=== PATIENT | female | born 1950 | race Caucasian/White ===

== ENCOUNTER 2024-12-04 06:03 | Day surgery (SDC) | payer MEDICARE, BC, SELFPAY ==
[2024-11-27 15:04] VITALS: BMI 30.2
--- NOTE | 2024-11-30 10:06 | EXP.HP ---
History of Present Illness *Admission Date: 12/04/24 *Reason for visit:: Personal history of adenomatous colon polyps *History of present illness: Mrs. Mckay is a 74-year-old female who is here for follow-up screening/surveillance colonoscopy secondary to a personal history of adenomatous colon polyps. The patient did have a colonoscopy in September 2017 and had a single polyp (tubular adenoma) removed. Her last colonoscopy with me in August 2019 also revealed a single polyp (tubular adenoma) which was removed. The patient does have a history of extensive left-sided diverticulosis. The examination is deemed medically necessary for screening/surveillance colonoscopy. The patient has been seen, interviewed and examined prior to the procedure by both myself and the anesthesia provider. [facility] Disclaimer: The information contained in this section may have been updated after the patient was seen, as this information can be updated by other users. Medical History (Updated 12/04/24 @ 06:58 by Miles Simmons II, MD) GERD (gastroesophageal reflux disease) Tremor Hypertension Surgical History History of partial hysterectomy History of removal of ovarian cyst Hx of breast surgery Family History Other No significant family history Social History (Updated 12/04/24 @ 07:12 by Lorenzo Granados CRNA) Smoking Status: Never smoker alcohol intake: never substance use type: denies use current occupational status: employed Travel in the last 8 weeks?: None Have you lived/traveled outside US in past 30 days?: No Contact w/someone who lives/traveled outside US past 30 days?: No Exposure to someone with infectious disease in past 14 days?: No Do you have a fever (greater than 100.4 F or 38 C)?: No Have you tested positive for COVID-19?: No Exposed to someone with COVID-19 in past 14 days?: No Do you have a sore throat?: No Do you have a cough?: No Do you have any weakness?: No Are you experiencing any nausea/vomitting?: No Do you have any diarrhea?: No Are you experiencing any unusual bleeding?: No Do you have any muscle aches/pain?: No Do you have any abdominal pain?: No Are you experiencing loss of taste or smell?: No Review of Systems Review of Systems Review of systems (narrative): Negative *Cardiovascular Comments: Negative *Gastrointestinal Comments: Negative *Genitourinary Comments: Negative *Musculoskeletal Comments: Negative *Neurologic Comments: Negative Meds Home Medications and Allergies Home Medications ?Medication ?Instructions ?Recorded ?Confirmed ?Type sodium,potassium,mag sulfates 17.5 See Rx Instructions PO .COMPLEX 11/20/24 12/04/24 Rx gram-3.13 gram-1.6 gram oral soln #354 mL (Suprep Bowel Prep Kit) hydrochlorothiazide 25 mg tablet 25 mg PO DAILY 11/27/24 12/04/24 History omeprazole 40 mg capsule,delayed 40 mg PO DAILY 11/27/24 12/04/24 History release propranolol 20 mg tablet 20 mg PO BID 11/27/24 12/04/24 History New Prescriptions to Start Prescriptions: Allergies Allergy/AdvReac Type Severity Reaction Status Date / Time Sulfa (Sulfonamide Allergy Hives Verified 11/27/24 14:57 Antibiotics) Exam Data for Last 24 hours I & O for Last 24 hours: Intake & Output 11/27/24 11/28/24 11/29/24 11/30/24 23:59 23:59 23:59 23:59 Weight 165 lb *Routine HEENT Exam Head: Present normocephalic Eye: Present EOMI and PERRL ENT: Present mucous membranes moist *Routine Neck Exam Neck: Present supple *Routine Respiratory Exam Respiratory: Present CTA bilaterally *Routine Cardiovascular Exam Cardiovascular: Present RRR *Routine Abdominal Exam Abdominal: Present soft and normoactive bowel sounds; Absent tenderness *Routine Rectal Exam Rectal:: deferred *Routine Genitalia Exam Genitalia:: deferred *Routine Extremities Exam Extremities: Absent cyanosis, clubbing or edema *Routine Skin Exam Skin: Present warm; Absent rash *Routine Neurological Exam Neurological: Present alert and oriented X3 Assessment and Plan *Assessment and plan (1) Personal history of adenomatous and serrated colon polyps: Status: Acute Category: Medical Code(s): Z86.0101 - Personal history of adenomatous and serrated colon polyps (2) Screening for colon cancer: Status: Acute Category: Medical Code(s): Z12.11 - Encounter for screening for malignant neoplasm of colon Plan A/P: 1. Personal history of adenomatous colon polyps is the preprocedural diagnosis. The patient will be anesthetized/sedated using MAC sedation. The patient has been seen and examined. Cardiac and lung assessment prior to the examination is stable. Proceed with planned screening/surveillance colonoscopy.
[2024-12-04 06:24] VITALS: BP 138/65; PULSE 72; RESP 18; TEMP 36.3; O2SAT 100
[2024-12-04] MEDS: LACTATED RINGERS 1000ML 1,000 ML 50 ML IV (06:41)
--- NOTE | 2024-12-04 06:59 | HMH.PROCNOTE ---
[facility] Procedure Note Date: 12/04/24 Time: 07:51 Procedure Note:: Colonoscopy Procedure Report: Colonoscopy with cold snare polypectomy Endoscopist: Miles Simmons II, MD Referring physician: Chucho Garcia MD, [address] [place] [address]. [address], [place] [address] Date of Procedure: December 04, 2024 Equipment: Olympus [id number] adult colonoscope Sedation: MAC sedation Indication: Mrs. Mckay is a 74-year-old female who is here for follow-up screening/surveillance colonoscopy secondary to a personal history of adenomatous colon polyps. The patient did have a colonoscopy in September 2017 and had a single polyp (tubular adenoma) removed. Her last colonoscopy with mi in August 2019 also revealed a single polyp (tubular adenoma) which was removed. The patient does have a history of extensive left-sided diverticulosis. The patient does report some pelvic cramps. She has had some diarrhea in October 2024. She reports no rectal bleeding, weight loss or family history of colon cancer. The examination is deemed medically necessary for screening/surveillance colonoscopy. Procedure: Prior to the procedure, a history and physical exam was performed, and patient's medications and allergies were reviewed. The risks, benefits and alternatives of the sedation and procedure were discussed with the patient. All questions were answered and informed consent was obtained. The patient was brought to the procedure room. Patient identification and proposed procedure were verified by the physician and the nurse. The patient was placed in a left lateral decubitus position and the scope was passed under direct vision. Throughout the procedure, the patient's blood pressure, pulse, and oxygen saturations were monitored continuously. The colonoscopy was accomplished without difficulty. The patient tolerated the procedure well. Findings: On digital rectal examination there was normal rectal tone. There were no external hemorrhoids. The colonoscope was introduced through the anal canal to the rectum and advanced to the cecum. The ileocecal valve and appendiceal orifice were identified. The scope was advanced a short distance into the ileum which appeared grossly normal. The scope was then withdrawn into the colon. There were 3 polyps (cecum x 1 (4 mm) and ascending x 2 (3 and 3 mm)). These were all removed via cold snare polypectomy. The remaining cecum, ascending and transverse colon and mucosa were grossly normal. There were scattered diverticuli throughout the descending and sigmoid colon (LEFT colon). The rectum itself was normal. Upon retroflexion within the rectum there were grade 1 internal hemorrhoids. The preparation was excellent throughout with Cohagen Preparation Score of 9. The cecal time was 13 minutes. Impression: 1. Diminutive colonic polyps x 3 2. Left-sided diverticulosis 3. Grade 1 internal hemorrhoids Plan: I will follow-up the polyp histology and recommend repeat screening/surveillance colonoscopy again in 5 years if the polyps are adenomatous. I will discuss dietary measures and psyllium fiber supplementation on a maintenance basis.
--- NOTE | 2024-12-04 07:12 | EXP.ANES.CKL ---
[facility] Disclaimer: The information contained in this section may have been updated after the patient was seen, as this information can be updated by other users. Medical History (Updated 12/04/24 @ 06:58 by Miles Simmons II, MD) GERD (gastroesophageal reflux disease) Tremor Hypertension Surgical History History of partial hysterectomy History of removal of ovarian cyst Hx of breast surgery Family History Other No significant family history Social History Smoking Status: Never smoker alcohol intake: never substance use type: denies use current occupational status: employed Travel in the last 8 weeks?: None [facility] Anesthesia Checklist Patient Identification Patient Identification: Verbal (Name & ) Structural Data Admitted From: Home Planned Operative Procedure/s: egd,colonoscopy Consent for Planned Operative Procedure(s) Verified: Yes NPO Status Verified Time NPO: 00:00 Airway Assessment Mallampati Score:: Class II C-Spine Mobility Assessed: Yes TMJ Mobility Assessed: Yes Dentition: Partials Neurological Assessment Level of Consciousness: Awake, Alert and Appropriate Anesthesia Plan Anesthesia Risk discussed: Yes Anesthesia Plan: Verified ASA Class: II Anesthesia Type: MAC
--- NOTE | 2024-12-04 07:28 | P.PCN_ITS ---
[facility] Procedure Note Date: 12/04/24 Time: 07:37 Procedure Note:: Upper Endoscopy Procedure Report: Esophagogastroduodenoscopy with cold biopsies and TTS balloon dilation Endoscopost: Miles Simmons II, MD Referring Physician: Chucho Gacria MD, [address] [place] [address] [address], [place] [address] Date of Procedure: December 04, 2024 Equipment: Olympus GIF-1100 standard upper endoscope Sedation: MAC sedation Indications: Mrs. Mckay is a 74-year-old female who has recently had some ind igestion and dyspepsia. She reports heartburn, belching and hiccups. She also reports some dysphagia/swallowing difficulty. She has had no bloating. She also reports some diarrhea in October 2024. She reports no melena or hematochezia. She has had some early satiety. Procedure: Prior to the procedure, a history and physical exam was performed, and patient's medications and allergies were reviewed. The risks, benefits and alternatives of the sedation and procedure were discussed with the patient. All questions were answered and informed consent was obtained. The patient was brought to the procedure room. Patient identification and proposed procedure were verified by the physician and the nurse. The patient was placed in a left lateral decubitus position and the scope was passed under direct vision. Throughout the procedure, the patient's blood pressure, pulse, and oxygen saturations were monitored continuously. The upper GI endoscopy was accomplished without difficulty. The patient tolerated the procedure well. Findings: The scope was passed directly into the upper esophagus and advanced to the third portion of the duodenum. The post bulbar duodenum, ampulla and duo denal bulb were normal with normal mucosa and conniventes. A cold biopsy was taken from the second portion of the duodenum for the disaccharidase assay. The scope was withdrawn through a normal duodenal bulb and pylorus into the stomach. There was mild linear antral gastropathy. The body and fundus of the stomach were normal. Upon retroflexion there was no hiatal hernia. Cold biopsies were taken from the antrum. The scope was then withdrawn into the esophagus. There was no evidence of reflux esophagitis or Yi's. There were no rings, strictures, corrugation, webs or Christy. There were strong tertiary esophageal contractions and evidence of moderate esophageal dysmotility. The entire esophagus was dilated to 60 Macedonian/20 mm with a TTS hydrostatic balloon with minimal resistance. The remainder of the esophageal mucosa was normal. Impression: 1. Moderate esophageal dysmotility with nonerosive GERD 2. Mild linear antral gastropathy Plan: I will follow-up the biopsies and disaccharidase assay. I do feel that she has gas driven reflux and dyspepsia. We will discuss treatment options. I will proceed with screening colonoscopy
[2024-12-04 07:54] VITALS: BP 100/53; PULSE 66; RESP 17; TEMP 36.2; O2SAT 94
[2024-12-04 08:04] VITALS: BP 101/59; PULSE 62; RESP 17; TEMP 36.2; O2SAT 95
[2024-12-04 08:14] VITALS: BP 107/61; PULSE 55; RESP 17; O2SAT 97
[2024-12-04 08:24] VITALS: BP 110/62; PULSE 56; RESP 17; TEMP 36.2; O2SAT 98
[2024-12-09 16:59] LABS: Interpretation Notes (.); Lactase 5.92 (>/= 14.0); Maltase 136.97 (>/= 110.0); Palatinase 9.58 (>/= 8.5); Reference Notes (.); Sucrase 27.05 (>/= 25.0)
== END 2024-12-04 08:35 | disposition home or self-care (01) ==
PROVIDERS: Visit Provider Internal Medicine Gastroenterology
PROC: 0DJ08ZZ Inspection of Upper Intestinal Tract, Via Natural or Artificial Opening Endoscopic (ICD-10-PCS; CPT 45378; principal; 2024-12-04 07:30)
DX: Z12.11 Encounter for screening for malignant neoplasm of colon (principal); Z86.0101 Personal history of adenomatous and serrated colon polyps; K57.30 Diverticulosis of large intestine without perforation or abscess without bleeding; K64.0 First degree hemorrhoids; K21.9 Gastro-esophageal reflux disease without esophagitis; K22.4 Dyskinesia of esophagus; K31.9 Disease of stomach and duodenum, unspecified; I10 Essential (primary) hypertension; Z88.2 Allergy status to sulfonamides; Z79.899 Other long term (current) drug therapy; K31.89 Other diseases of stomach and duodenum; D12.0 Benign neoplasm of cecum; K63.5 Polyp of colon
CPT/HCPCS: 43239; 43249; 45385; 82657; C1726; J2003; J2704; J7120